=== PATIENT | male | born 1995 | race Caucasian/White ===

== ENCOUNTER 2019-03-17 01:19 | Emergency (ER) | payer SELFPAY ==
[~2019-03-17] VITALS: Ht 177.8 cm; Wt 85.8 kg
[~2019-03-17 01:19] MED LIST: DENIES MEDS
[2019-03-17 01:22] VITALS: Ht 177.8 cm; Wt 85.8 kg
[2019-03-17] MEDS ORDERED: KETOROLAC 30 MG INJ IM STA (02:16)
[2019-03-17] MEDS ORDERED: LIDOCAINE 1% (MDV) 20 ML INJ SC ONE (04:00)
[2019-03-17] MEDS ORDERED: CEPH-443 PO (04:21)
[2019-03-17] MEDS ORDERED: SULF1TAB31 PO (04:21)
[2019-03-17] MEDS ORDERED: ACET-141 PO (04:22)
[2019-03-17] MEDS ORDERED: IBUP-1561 PO (04:22)
--- NOTE | 2019-03-17 04:26 | ERD ---
ER Documentation Chief Complaint Chief Complaint wound infection on left middle finger with pain x1 day HPI 23-year-old male no significant past medical history presents for left third finger infection x2 day. 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 Initially thought the pain would go away however the pain is been increasing. He states he has 10 out of 10 pain. He took some ibuprofen with only mild relief. Denies any fevers or chills. No other modifying factors noted, no other treatments tried at home. ROS All systems reviewed and are negative except as per history of present illness. Medications Home Meds Active Scripts Ibuprofen* (Motrin*) 400 Mg Tab, 400 MG PO Q6H PRN for PAIN, #30 TAB Prov:LENO ARAIZA DO 03/17/19 Acetaminophen* (Acetaminophen*) 500 MG Extra Strength Tablet, 500 MG PO Q4H PRN for PAIN AND OR ELEVATED TEMP, #30 TAB Prov:LENO ARAIZA 03/17/19 Sulfamethoxazole/Trimethoprim* (Bactrim Ds* Tablet) 1 Each Tablet, 1 TAB PO BID for skin infection for 5 Days, #10 TAB Prov:LENO ARAIZA 03/17/19 Cephalexin* (Keflex*) 500 Mg Capsule, 500 MG PO TID for skin infection for 5 Days, #15 CAP Prov:LENO ARAIZA DO 03/17/19 Reported Medications [Denies Meds] No Conflict Check 08/02/10 Allergies Allergies: Coded Allergies: No Known Drug Allergy (Verified Allergy, Mild, 03/17/19) PMhx/Soc History of Surgery: No Anesthesia Reaction: No Hx Neurological Disorder: No Hx Respiratory Disorders: No Hx Cardiac Disorders: No Hx Psychiatric Problems: No Hx Miscellaneous Medical Probl: No Hx Alcohol Use: No Hx Substance Use: No Hx Tobacco Use: No FmHx Family History: No coronary disease Physical Exam Vitals Vital Signs Date Temp Pulse Resp B/P (MAP) Pulse Ox O2 O2 Flow FiO2 Time Delivery Rate 03/17/19 98.4 78 16 152/97 99 01:22 (115) Physical Exam Const: No acute distress Resp: Clear to auscultation bilaterally Cardio: Regular rate and rhythm, no murmurs Abd: Soft, non tender, non distended. Normal bowel sounds Skin: Left third digit distal tip abscess about 0.5 to 1 cm in width noted w ith increased warmth and tenderness to palpation. Back: No midline or flank tenderness Ext: No cyanosis, or edema Neur: Awake and alert Psych: Normal Mood and Affect Results 24 hrs Current Medications Medications Dose Sig/Pam Start Time Status Last (Trade) Ordered Route PRN Stop Time Admin Dose Reason Admin Ketorolac 30 mg ONCE STAT 03/17/19 DC 03/17/19 Tromethamine IM 02:16 02:25 (Toradol) 03/17/19 02:17 Lidocaine 20 ml ONCE ONCE 03/17/19 DC (Xylocaine SC 04:00 1% (Mdv) 20 03/17/19 04:01 ml) Procedures/MDM Abscess Incision and Drainage with irrigation by me: Location: Left third distal finger Anesthesia: [Local 1% Lidocaine without epinephrine] Technique: [Irrigated. Disrupted loculations w/ instrumentation] Packing: [None] Complications: [Neurovascularly intact post procedure] 48 hour wound check. Scar minimization instructions given Patient's skin symptoms have stabilized while they have been evaluated in the department and are appropriate for outpatient care and work up. Exam and w/u not consistent w/ sepsis, deep space infection, or foreign body. Medical Decision Making: Patient appeared well on physical exam. Examination consistent with an abscess at the distal tip of the left third finger Patient was neurovascular intact ED course: Patient was given Toradol and [place] in the ER with relief of symptoms The abscess was drained, see procedure note above Patient tolerated procedure well, advised to return to the ER in 48 hours for wound check Prescription(s): Patient given prescription for supportive medication(s) As well as Keflex and Bactrim. Given the patient tried ibuprofen at home without relief, patient will be discharged with a short course low-dose of [place] Patient advised to follow up with PCP in 1-2 days. Patient advised to return to ED for new or worsening symptoms. Patient stable on discharge from the ED. The patient has been prescribed [place] during this encounter. The patient has been warned about the use of narcotics. The patient should not drive or operate heavy machinery while taking this medication. The patient was also warned about the addictive properties of narcotic medications. Narcan prescription was NOT provided given the following criteria 1. No more than 5 tablets of [place] 10 mg or 10 tablets of [place] 5 mg were prescribed. 2. Concomitant opiate and benzodiazepine prescriptions were not provided. 3. There is no obvious evidence of prior history of opiate abuse or overdose. Disclaimer: Inadvertent spelling and grammatical errors are likely due to EHR/dictation software use and do not reflect on the overall quality of patient care. Also, please note that the electronic time recorded on this note does not necessarily reflect the actual time of the patient encounter. Departure Diagnosis: Primary Impression: Abscess Condition: Fair Patient Instructions: Abscess, Incision And Drainage Additional Instructions: Call your primary care doctor TOMORROW for an appointment during the next 1-2 days.See the doctor sooner or return here if your condition worsens before your appointment time. return to ER in 48 hours for wound check LENO ARAIZA DO March 17, 2019 04:26
[2019-03-17] MEDS ORDERED: HYDR-4011 PO (04:29)
[2019-03-17] MEDS ORDERED: HYDROCODONE/APAP (5/325) TAB PO ONE (04:30)
[2019-03-17 04:35] VITALS: BP 150/93; PULSE 75; RESP 18
== END 2019-03-17 04:38 | disposition home or self-care (01) ==
LOC: FTE 01:19
DX: L02.512 Cutaneous abscess of left hand (principal)
CPT/HCPCS: 10060; 96372; 99284; J1885